=== PATIENT | female | born 1990 | race American Indian/Alaskan Native ===

== ENCOUNTER 2021-03-19 07:03 | Day surgery (SDC) | payer OTHER ==
--- NOTE | 2021-03-15 09:57 | History and Physical Report ---
History of Present Illness Date of examination: 03/15/21 Chief complaint: severe dysplasia History of present illness: 30 yo presenting for severe dysplasia CIN3 for definitive surgical andrez griffin. Past History Past Medical History: no pertinent history Past Surgical History: no surgical history [employer] History: abnormal PAP smear, herpes, trichomonas Family/Genetic History: hypertension Social history: no significant social history - Obstetrical History : 2 Para: 2 Number of Living Children: 2 Medications and Allergies Allergies Allergy/AdvReac Type Severity Reaction Status Date / Time No Known Allergies Allergy Verified 03/15/21 17:13 Review of Systems All systems: negative (expect HPI) - Physical Exam Abdomen: Positive: normal appearance, normal bowel sounds Results Result Diagrams: 03/19/21 07:45 All other labs normal. Assessment and Plan - Patient Problems (1) Severe dysplasia of cervix (TJ III) Current Visit: No Status: Acute Plan to address problem: To OR for Loop Electrosurgical Excision Procedure --Consented in the chart --Questions solicited and answered
[~2021-03-19 07:03] MED LIST: ACETAMINOPHEN 500 MG TAB PO SCH; BACTERIOSTATIC SODIUM CHLORIDE 0.9% 30 ML VIAL INFILTRATI ONE; LACTATED RINGERS 1,000 ML IV SCH; MIDAZOLAM 2 MG/2 ML INJ IV NR
[2021-03-19] MEDS ORDERED: HYDROcodone/ACETAMINOPHEN 5-325 MG TAB PO PRN (07:35)
[2021-03-19] MEDS ORDERED: fentaNYL 100 MCG/2 ML INJ IV PRN (07:35)
[2021-03-19] MEDS ORDERED: ONDANSETRON 4 MG/2 ML INJ IV PRN (07:35)
--- NOTE | 2021-03-19 07:35 | Anesthesia Consultation ---
Anesthesia Consult and Med Hx Date of service: 03/19/21 - Airway Anesthetic Teeth Evaluation: Good ROM Head & Neck: Adequate Mental/Hyoid Distance: Adequate Mallampati Class: Class III Intubation Access Assessment: Possibly Difficult - Pre-Operative Health Status ASA Pre-Surgery Classification: ASA2 Proposed Anesthetic Plan: General - Pulmonary Hx Smoking: Yes (1/2 PPD) Hx Respiratory Symptoms: No - Cardiovascular System Hx Hypertension: No Hx Heart Attack/AMI: No Hx Percutaneous Transluminal Coronary Angioplasty (PTCA): No - Central Nervous System CVA: No - Endocrine Hx Renal Disease: No Hx Liver Disease: No Hx Insulin Dependent Diabetes: No Hx Non-Insulin Dependent Diabetes: No Hx Thyroid Disease: No - Other Systems Hx Obesity: No - Additional Comments Anesthesia Medical History Comments: No prior GA. No FHx anesthetic complications.
--- NOTE | 2021-03-19 07:35 | Anesthesia Day of Surgery ---
Anesthesia Day of Surgery - Day of Surgery Patient Examined: Yes Patient H&P Reviewed: Yes Patient is NPO: Yes
[2021-03-19] MEDS ORDERED: KETOROLAC 30 MG/1 ML INJ IV PRN (07:36)
[2021-03-19 07:55] LABS: Basophils % (Auto) 0.6 % (0.0-1.8); Eosinophils # (Auto) 0.2 K/mm3 (0.0-0.4); Eosinophils % (Auto) 3.1 % (0.0-4.3); Hematocrit 36.8 % (30.3-42.9); Hemoglobin 12.7 gm/dl (10.1-14.3); Lymphocytes # (Auto) 2.1 K/mm3 (1.2-5.4); Lymphocytes % (Auto) 35.6 % (13.4-35.0); Mean Corpuscular HGB Conc 34 % (30-34); Mean Corpuscular Volume 96 fl (79-97); Monocytes # (Auto) 0.4 K/mm3 (0.0-0.8); Monocytes % (Auto) 6.9 % (0.0-7.3); Platelet Count 186 K/mm3 (140-440); Red Blood Count 3.82 M/mm3 (3.65-5.03); Red Cell Distribution Width 13.3 % (13.2-15.2)
[2021-03-19] MEDS ORDERED: SILVER NITRATE APPLICATOR 1 EA TP ONE (08:35)
[2021-03-19] MEDS ORDERED: FERRIC SUBSULFATE TOPICAL SOLN 8 ML TP ONE ×2 (08:35→09:24)
[2021-03-19] MEDS ORDERED: POTASSIUM IODIDE/IODINE (LUGOLS) 30 ML TP ONE ×2 (08:35→09:24)
[2021-03-19] MEDS ORDERED: ACETIC ACID 3% SOLN 60 ML TP ONE (08:35)
[2021-03-19] MEDS ORDERED: propofoL 200 MG/20 ML VIAL IV ONE (08:56)
[2021-03-19] MEDS ORDERED: ONDANSETRON 4 MG/2 ML INJ ONE (09:10)
[2021-03-19] MEDS ORDERED: dexAMETHasone 20 MG/5 ML VIAL ONE (09:10)
[2021-03-19] MEDS ORDERED: KETOROLAC 30 MG/1 ML INJ ONE (09:10)
[2021-03-19] MEDS ORDERED: HYDROmorphone 1 MG/1 ML INJ ONE (09:13)
[2021-03-19] MEDS ORDERED: SODIUM CHLORIDE 0.9% IRR 1,500 ML BOTTLE IR ONE (09:24)
--- NOTE | 2021-03-19 09:45 | Procedure Note ---
Date of procedure: 03/19/21 Pre-op diagnosis: Severe cervical dysplasia Post-op diagnosis: same Procedure: Preoperative diagnosis: Biopsy-proven cervical intraepithelial neoplasia (TJ) 3 Postop postoperative diagnosis: Same Operation performed: 1. Exam under anesthesia 2. Loop electrosurgical excision procedure Surgeon: Madhu Glasgow MD Estimated blood loss 25 Intraoperative IV fluids 500 Urine output 25 Pathology specimens: 1. Anterior cervix marked at noon 2. Posterior cervix marked at 6 3. Top-Hat deep endocervical margin marked at noon Complications: none Disposition and condition: To the PACU in stable condition then discharged home Findings: 1. Small anteverted mobile uterus without any adnexal masses on EUA 2. Grossly normal-appearing cervix Statement medical necessity: This is a 30-year-old G 2 P 2 patient, with a history of HSIL pap smear followed by suspected satisfactory colposcopy and biopsy proven TJ 3. The procedural risk, benefits, indications and alternatives were thoroughly reviewed patient and she desired to proceed with surgical management. Description of operation: After obtaining informed consent the patient was taken to the operating room where satisfactory general endotracheal anesthesia was established. The patient was placed in the standard lithotomy position using candycane stirrups, ensuring proper positioning and cushioning to avoid injury. Exam under anesthesia was performed with the findings noted above. Straight catheterization of the bladder was performed. Patient was prepped and draped in the usual sterile fashion. Coated sidewall retractors were inserted into the anterior and posterior vaginal fornix to assist with visualization of the cervix. The cervix and upper vagina were coated with the Lugol's iodine and inspected for nonstaining areas. The entire transformation zone was visualized and there was a small circumferential nonstaining area around the cervical os. A LEEP was completed with a 20x12 mm loop electrode and anterior and posterior segments. A LEEP Top-Hat was performed with a 11x5 mm loop electrode. All specimens were sent to pathology. The biopsy site was rendered hemostatic with Bovie electrocautery with a 3 mm electrosurgical ball electrode and Monsel's solution was applied to the excisional base. The retractors were removed. The patient was returned to dorsal supine position. The patient tolerated procedure well, was extubated without difficulty and transferred to recovery in good condition. Sponge, needle and instrument counts are correct x2. There is no surgical or anesthetic complications. Anesthesia: GETA Surgeon: MADHU GLASGOW JR Estimated blood loss: other (25cc) IV fluids: 500 Urine output: 25 Pathology: list (1. Anterior cervix (into 2 pieces) marked at noon. 2. Posterior cervix marked at 6 3. Top-Hat deep endocervical margin marked at noon) Specimen disposition: to lab Condition: stable Disposition: same day
[2021-03-19] MEDS ORDERED: oxyCODONE /ACETAMINOPHEN 5-325MG TAB PO PRN (10:30)
[2021-03-19] MEDS ORDERED: IBUPROFEN 600 MG TAB PO PRN (10:30)
[2021-03-19 10:58] VITALS: BP 125/80
--- NOTE | 2021-03-19 11:39 | Post Anesthesia Evaluation ---
- Post Anesthesia Evaluation Patient Participated: Yes Airway Patent: Yes Stable Respiratory Function: Yes Nausea/Vomiting: No Temp > 96.8F: Yes Pain Manageable: Yes Adequeate Hydration: Yes Anesthesia Complications: No
== END 2021-03-19 10:45 | disposition home or self-care (01) ==
LOC: OR 07:03
PROVIDERS: ATTEND Obstetrics & Gynecology
DX: D06.0 Carcinoma in situ of endocervix (principal); D06.7 Carcinoma in situ of other parts of cervix; F17.210 Nicotine dependence, cigarettes, uncomplicated; K21.9 Gastro-esophageal reflux disease without esophagitis; Z79.899 Other long term (current) drug therapy; Z98.890 Other specified postprocedural states
CPT/HCPCS: 36415; 57522; 81025; 85025; 88307; J1100; J1170; J1885; J2250; J2405; J2704; J7120